=== PATIENT | female | born 1985 | race Two or more races ===

== ENCOUNTER 2018-07-14 00:08 | Emergency (ER) | payer MEDICAID, OTHER ==
[~2018-07-14] VITALS: Ht 165.1 cm; Wt 71.2 kg
[2018-07-14 00:16] VITALS: BP 96/76
[2018-07-14] MEDS ORDERED: LIDOCAINE-MPF 1%, 5ML ONE (00:34)
[2018-07-14] MEDS ORDERED: OXYcodone/APAP 5/325MG TABLET ONE (00:35)
[2018-07-14] MEDS ORDERED: CLINDAMYCIN 150 MG/ML, 6ML ONE (00:50)
[2018-07-14] MEDS ORDERED: OXYcodone/APAP 5/325MG TABLET PO ONE (01:00)
[2018-07-14] MEDS ORDERED: CLINDAMYCIN 150 MG/ML, 6ML IM ONE (01:00)
[2018-07-14] MEDS ORDERED: LIDOCAINE-MPF 1%, 5ML INFIL ONE (01:00)
== END 2018-07-14 01:21 | disposition home or self-care (01) ==
LOC: ED 01:15
DX: L02.213 Cutaneous abscess of chest wall (principal)
CPT/HCPCS: 10060; 96372; 99283; S0077